=== PATIENT | female | born 1960 | race Caucasian/White ===

== ENCOUNTER 2019-08-05 07:45 | Outpatient (CLI) | payer OTHER, SELFPAY ==
--- NOTE | 2019-08-05 08:00 | MM_ITS ---
WS: [id number] BILATERAL DIGITAL DIAGNOSTIC MAMMOGRAM MAMMOGRAPHY WITH CAD CLINICAL INFORMATION: HX OF BREAST CANCER HISTORY: Left breast soreness COMPARISON: July 11, 2018 TECHNIQUE: Bilateral CC, MLO, and ML views. FINDINGS: Scattered fibroglandular densities bilaterally. Interval postoperative changes lumpectomy left breast for ductal carcinoma resection. Parenchymal fibrosis at the lumpectomy sites. Treatment-related mosquera ges left breast. Volume loss left breast. No suspicious focal mass, asymmetry, calcifications, or architectural distortion. No evidence of hari gnancy. MM/[id number] IMPRESSION: BI-RADS: 2-Benign FOLLOW UP: 1 Year Follow-up Recommend return to annual diagnostic mammography.
== END 2019-08-05 07:46 | disposition home or self-care (01) ==
LOC: ONCMED 07:51
PROVIDERS: Family Provider Physician Assistant; PCP Physician Assistant; Visit Provider Internal Medicine Medical Oncology
DX: Z85.3 Personal history of malignant neoplasm of breast (principal)
CPT/HCPCS: 77066

== ENCOUNTER 2019-08-13 13:56 | Outpatient (CLI) | payer OTHER, SELFPAY ==
[2019-08-13 14:42] LABS: Basophils % 0.6 %; Eosinophils # 0.1 10^3/uL (0.0-0.8); Eosinophils % 2.1 %; Hematocrit 42.7 % (37.0-47.0); Hemoglobin 14.2 g/dL (11.5-15.3); Lymphocytes # 1.6 10^3/uL (0.8-4.8); Lymphocytes % 29.7 %; Mean Corpuscular HGB Conc 33.3 g/dL (30.0-36.0); Mean Corpuscular Hemoglobin 31.8 pg (28.0-34.0); Mean Corpuscular Volume 95.7 fL (81-99); Mean Platelet Volume 10.7 fL (7.4-10.4); Monocytes # 0.4 10^3/uL (0.2-0.9); Monocytes % 8.4 %; Neutrophils # 3.1 10^3/uL (1.8-7.7); Nucleated Red Blood Cells % 0 %; Platelet Count 173 10^3/cmm (130-400); Red Blood Count 4.46 10^6/uL (4.1-5.3); Red Cell Distribution Width 12.1 % (12.1-15.1); White Blood Count 5.2 10^3/uL (4.0-10.0)
[2019-08-13 14:51] LABS: Alanine Aminotransferase 20 U/L (0-33); Albumin Level 4.3 g/dL (3.5-5.2); Alkaline Phosphatase 69 IU/L (35-105); Anion Gap 17.8 (5-19); Aspartate Amino Transferase 32 U/L (0-32); Blood Urea Nitrogen 12 mg/dL (6-20); Calcium 9.7 mg/dL (8.5-10.5); Carbon Dioxide 24 mmol/L (22-29); Chloride 101 mmol/L (98-107); Globulin 3.1 g/dL (1.3-4.6); Glomerular Filtration Rate 73.4 mL/min (90-130); Glucose 96 mg/dL (65-115); Osmolality Calculated 284 mOsm/kg (285-295); Potassium 3.8 mmol/L (3.5-5.1); Sodium 139 mmol/L (136-145); Total Bilirubin 0.4 mg/dL (0.15-1.2); Total Protein 7.4 g/dL (6.6-8.7)
== END 2019-08-13 13:57 | disposition home or self-care (01) ==
LOC: ONCMED 13:56
PROVIDERS: Family Provider Physician Assistant; PCP Physician Assistant; Visit Provider Internal Medicine Medical Oncology
DX: C50.812 Malignant neoplasm of overlapping sites of left female breast (principal)
CPT/HCPCS: 36415; 80053; 85025

== ENCOUNTER 2019-08-14 14:31 | Outpatient (CLI) | payer OTHER, SELFPAY ==
[2019-08-14] MEDS: denosumab 60 mg SDV SUBCUT (15:34)
--- NOTE | 2019-08-14 19:16 | ONC FU_ITS ---
Dr. Stewart Patient Follow-Up Note Patient: Andie Jerome Unit #: [id number]: [id number] Dicatated By: Keshav Stewart M.D.Date of Visit:Aug 14, 2019 Onc Med Follow-up/Prog Note Chief Complaint: Breast cancer. History of Present Illness: This is a 59 year-old woman with multifocal grade 2 infiltrating ductal carcinoma of the left breast, stage IA (T1c, N0, M0), ER/MO positive and HER-2/sean negative. This patient has been in good general health. She had recently become aware of a lump in her left breast. Diagnostic mammogram on 07/11/2018 showed a focal asymmetric density in the outer left breast measuring 1.6 x 1.1 cm and an additional smaller lesion in the posterior depth upper outer quadrant measuring 9.6 mm. Ultrasound showed a hypoechoic lobulated solid nodule with vascularity at the 3:00 position measuring 0.7 x 0.6 cm. An additional lesion at the 4:00 position deep to the areola measured 1.6 x 1.1 cm. It showed mixed echogenicity with lobulations and increased vascularity. Both lesions were BI-RADS 4C, moderately suspicious. She underwent directed needle biopsy of both lesions on 08/02/2018. Pathology on the lesion at 3:00 showed grade 2 infiltrating ductal carcinoma. The breast prognostic profile on that lesion showed ER positive at 96% and MO positive at 57%. It was negative for overexpression of HER-2/sean, 1+ by IHC with amplification ratio by FISH of 1.1 with 2.4 HER-2 copies/cell. The Ki-67 was unfavorable at 44%. Pathology on the lesion at 4:00 showed grade 2 infiltrating ductal carcinoma. That lesion was further evaluated by IHC for neuroendocrine differentiation, and that was found to be equivocal. She underwent left breast lumpectomy and axillary sentinel lymph node biopsy on 08/30/2018. Pathology on the lumpectomy showed 2 tumors, one measuring 1.2 x 1.2 cm and the other measuring 0.7 x 0.6 cm. Both showed grade 2 infiltrating ductal carcinoma. There was evidence for small lymphovascular space invasion. The resection margins were free. The sentinel lymph node biopsy showed no involvement in 2 lymph nodes. Given those findings, she then had further evaluation with Oncotype DX. It showed a recurrence score of 15, corresponding to a 4% risk of distant disease at 9 years with adjuvant hormonal therapy. The predicted benefit with adjuvant chemotherapy was < 1%. Given those findings, adjuvant chemotherapy was not recommended. She was then seen by Dr. Main, and she underwent radiation to the left breast. She completed treatment on 11/05/2018 to a total dose of 5256 cGy. I had seen her for a follow-up visit on 11/09/2018. She had just completed radiation. She did develop a significant skin reaction, but she otherwise tolerated it well. She then began adjuvant hormonal therapy with anastrozole 1 mg daily. Her baseline bone density showed osteopenia with T score -1.88 in the lumbar spine, -1.6 in the left proximal femur, and -1.5 in the right proximal femur. She began treatment with Prolia in February 2019. She is seen for a scheduled visit. She has been feeling good generally. 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 She is not having as much pain in her hands, though, and she is not having as much fatigue. Her ECOG score is 0. She has good appetite. She has not had fever or night sweats. She has just occasional hot flashes. She has no shortness of breath, cough, or chest pain. She has had a little pain at times in her left axillary area. She has no GI or complaints. She also has a little pain in her lower back and hips, mainly when she first gets up in the morning. She does not complain of headache. She has occasional episodes of vertigo. She occasionally has numbness in her hands. Medications: Aleve 1 Tablet (of 220 mg) Tablet Oral PRN, Anastrozole 1 Tablet (of 1 mg) Oral daily, Keon Mag Zinc +D3 2 Tablet Tablet Oral b.i.d., Cayenne Plus Garlic 1 (200-300 mg) Capsule Oral daily, francense 1 Capsule daily, Glucosamine 1 Tablet Oral daily, Grapeseed Extract 1 (500-50 mg) Capsule Oral daily, hylands allergy relief 1 Tablet Oral daily PRN, Multivitamin Adult 1 Tablet Oral daily, Ocuvite Adult 50+ 1 Tablet Capsule Oral daily, olive extract 1 Capsule daily, Radha Flazyme 1 Tablet daily, sinfix 1 Tablet Oral daily PRN, Turmeric 1 (400 mg) Capsule Oral daily, Vitamin B Complex 2 Tablet Tablet Oral b.i.d., Vitamin D3 Oral daily Allergies: No Known Allergies. Review of Systems: Constitutional - Her energy level is good. 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 Her appetite is good and weight is stable. No fever or chills. She has occasional hot flashes but they are improved. No night sweats. ECOG score is 0, ENMT - She has chronic sinus drainage. No mouth sores. No sore throat or difficulty swallowing, Hematologic/Lymphatic - She bruises easily, Respiratory - No shortness of breath. No cough. No pleuritic pain or hemoptysis, Cardiovascular - No angina pain. No palpitations, Gastrointestinal - No nausea or vomiting. No heartburn or acid reflux. No diarrhea or constipation. No blood in the stool or black stools, Genitourinary (F) - No dysuria or hematuria. No urinary frequency. No urgency or incontinence, Musculoskeletal - She has occasional pain in her left axilla area. She also has some occasional pain in her knees and in her lower back, Integumentary - No skin complications, Neurologic - No headache or dizziness. She continues to have some mild tingling in her fingers, Psychiatric - No anxiety or depression. No insomnia. Vital Signs: Performed on Aug 14, 2019 14:37 Height - 63.00 in Weight - 138.4 lbs (LOW) BSA - 1.65 sq.m BMI - 24.52 Temperature - 98.5 F Pulse - 80 /min Respiration - 20 /min BP - 138/75 mm(hg) O2 Sat - 97 % Pain - 0 Physical Examination: Constitutional - She looks good generally, Eyes - Sclerae nonicteric. Conjunctivae clear, ENMT - No lesions noted in the oral cavity, Hematologic/Lymphatic - No cervical or clavicular adenopathy, Respiratory - Lungs are clear with good air movement bilaterally, Cardiovascular - Heart rhythm is regular. There is no murmur, gallop, or rub noted, Breasts - There is mild induration in the left breast. There are no breast masses noted. There is no axillary adenopathy noted, Abdomen - Soft. Liver and spleen are not enlarged. There is no abdominal mass or ascites noted and there is no inguinal adenopathy, Extremities - No edema. Dorsalis pedis pulses are palpable bilaterally, Neurologic - No focal neurologic deficits noted. Lab/Imaging: CBC shows hemoglobin 14.2 g, white blood cell count 5200, and platelet count 173,000. Comprehensive metabolic profile is unremarkable. Impression: 1. Patient with multifocal grade 2 infiltrating ductal carcinoma of the left breast, stage IA (T1c, N0, M0), ER/MO positive and HER-2/sean negative. Her Oncoptype DX score was 15, low risk, with risk of distant disease at 9 years estimated at 4% with adjuvant hormonal therapy. The predicted benefit with adjuvant chemotherapy was < 1%. As such, chemotherapy was not recommended. 2. She underwent needle biopsy of 2 left breast lesions on 08/02/2018 followed by lumpectomy and axillary sentinel lymph node biopsy on 08/30/2018. 3. She completed radiation to the left breast on 11/05/2018 to a total dose of 5256 cGy. In November 2018 she began adjuvant hormonal therapy with anastrozole 1 mg daily. Her baseline bone density did show evidence of osteopenia with T score -1.8 in the lumbar spine, -1.6 in the left proximal femur, and -1.5 in the right proximal femur. She began treatment with Prolia in February 2019. Thus far she has been able to tolerate the anastrozole with acceptable side effects, mainly fatigue and mild joint pain. Overall, she is doing well clinically with no evidence of recurrence of the breast cancer. Plan: She will continue adjuvant hormonal therapy with anastrozole 1 mg daily. She will be given Prolia 60 mg by subcutaneous injection for bone health. She will be scheduled for a follow-up visit in 6 months. Signed By: Keshav Stewart M.D. <<Signature on File>>
== END 2019-08-14 14:32 | disposition home or self-care (01) ==
LOC: ONCMED 14:31
PROVIDERS: Family Provider Physician Assistant; PCP Physician Assistant; Visit Provider Internal Medicine Medical Oncology
DX: C50.812 Malignant neoplasm of overlapping sites of left female breast (principal); M85.89 Other specified disorders of bone density and structure, multiple sites; Z17.0 Estrogen receptor positive status [ER+]; Z79.811 Long term (current) use of aromatase inhibitors; Z92.3 Personal history of irradiation
CPT/HCPCS: 96372; 99214; J0897

== ENCOUNTER 2020-02-12 13:43 | Outpatient (CLI) | payer OTHER, SELFPAY ==
[2020-02-12 14:17] LABS: Basophils % 0.8 %; Eosinophils # 0.2 10^3/uL (0.0-0.8); Hematocrit 42.2 % (37.0-47.0); Hemoglobin 14.3 g/dL (11.5-15.3); Lymphocytes # 1.9 10^3/uL (0.8-4.8); Lymphocytes % 35.2 %; Mean Corpuscular HGB Conc 33.9 g/dL (30.0-36.0); Mean Corpuscular Hemoglobin 32.3 pg (28.0-34.0); Mean Corpuscular Volume 95.3 fL (81-99); Mean Platelet Volume 11.2 fL (7.4-10.4); Monocytes # 0.5 10^3/uL (0.2-0.9); Monocytes % 9.1 %; Neutrophils # 2.68 10^3/uL (1.8-7.7); Neutrophils % 50.9 %; Nucleated Red Blood Cells % 0 %; Platelet Count 174 10^3/cmm (130-400); Red Blood Count 4.43 10^6/uL (4.1-5.3); White Blood Count 5.3 10^3/uL (4.0-10.0)
[2020-02-12 14:38] LABS: Alanine Aminotransferase 21 U/L (0-33); Albumin Level 4.2 g/dL (3.5-5.2); Alkaline Phosphatase 77 IU/L (35-105); Anion Gap 15.8 (5-19); Aspartate Amino Transferase 29 U/L (0-32); Blood Urea Nitrogen 15 mg/dL (6-20); Calcium 9.8 mg/dL (8.5-10.5); Carbon Dioxide 27 mmol/L (22-29); Chloride 102 mmol/L (98-107); Globulin 2.6 g/dL (1.3-4.6); Glomerular Filtration Rate 73.4 mL/min (90-130); Glucose 101 mg/dL (65-115); Osmolality Calculated 293 mOsm/kg (285-295); Potassium 3.8 mmol/L (3.5-5.1); Sodium 141 mmol/L (136-145); Total Bilirubin 0.4 mg/dL (0.15-1.2); Total Protein 6.8 g/dL (6.6-8.7)
== END 2020-02-12 13:44 | disposition home or self-care (01) ==
LOC: ONCMED 13:45
PROVIDERS: PCP Physician Assistant; Visit Provider Internal Medicine Medical Oncology
DX: C50.812 Malignant neoplasm of overlapping sites of left female breast (principal); Z17.0 Estrogen receptor positive status [ER+]
CPT/HCPCS: 36415; 80053; 85025

== ENCOUNTER 2020-02-13 07:47 | Outpatient (CLI) | payer OTHER, SELFPAY ==
[2020-02-13] MEDS: denosumab 60 mg SDV SUBCUT (16:15)
--- NOTE | 2020-02-20 15:04 | ONC FU_ITS ---
[facility] Patient Note Patient: Andie Jerome Unit #: [id number]: [id number] Dictated By: Mariela GallardoDate of Visit: Feb 13, 2020 Onc MED Follow-Up/Prog Note Chief Complaint: Breast cancer. History of Present Illness: Ms Jerome is a 59 year-old woman with multifocal grade 2 infiltrating ductal carcinoma of the left breast, stage IA (T1c, N0, M0), ER/SD positive and HER-2/sean negative. Overall, she has been in good general health. She became aware of a lump in her left breast. Diagnostic mammogram on 07/11/2018 showed a focal asymmetric density in the outer left breast measuring 1.6 x 1.1 cm and an additional smaller lesion in the posterior depth upper outer quadrant measuring 9.6 mm. Ultrasound showed a hypoechoic lobulated solid nodule with vascularity at the 3:00 position measuring 0.7 x 0.6 cm. An additional lesion at the 4:00 position deep to the areola measured 1.6 x 1.1 cm. It showed mixed echogenicity with lobulations and increased vascularity. Both lesions were BI-RADS 4C, moderately suspicious. She underwent directed needle biopsy of both lesions on 08/02/2018. Pathology on the lesion at 3:00 showed grade 2 infiltrating ductal carcinoma. The breast prognostic profile on that lesion showed ER positive at 96% and SD positive at 57%. It was negative for overexpression of HER-2/sean, 1+ by IHC with amplification ratio by FISH of 1.1 with 2.4 HER-2 copies/cell. The Ki-67 was unfavorable at 44%. Pathology on the lesion at 4:00 showed grade 2 infiltrating ductal carcinoma. That lesion was further evaluated by IHC for neuroendocrine differentiation, and that was found to be equivocal. She underwent left breast lumpectomy and axillary sentinel lymph node biopsy on 08/30/2018. Pathology on the lumpectomy showed 2 tumors, one measuring 1.2 x 1.2 cm and the other measuring 0.7 x 0.6 cm. Both showed grade 2 infiltrating ductal carcinoma. There was evidence for small lymphovascular space invasion. The resection margins were free. The sentinel lymph node biopsy showed no involvement in 2 lymph nodes. Given those findings, she then had further evaluation with Oncotype DX. It showed a recurrence score of 15, corresponding to a 4% risk of distant disease at 9 years with adjuvant hormonal therapy. The predicted benefit with adjuvant chemotherapy was < 1%. Given those findings, adjuvant chemotherapy was not recommended. She was then seen by Dr. Main, and she underwent radiation to the left breast. She completed treatment on 11/05/2018 to a total dose of [address] Stewart had seen her for a follow-up visit on 11/09/2018. She had just completed radiation. She did develop a significant skin reaction, but she otherwise tolerated it well. She then began adjuvant hormonal therapy with anastrozole 1 mg daily. Her baseline bone density showed osteopenia with T score -1.88 in the lumbar spine, -1.6 in the left proximal femur, and -1.5 in the right proximal femur. She began treatment with Prolia in February 2019. Ms. Jerome is here today for follow-up. She continues to do well overall. She is doing well with the anastrozole 1 mg daily. She states she has had some joint stiffness in her hands of the morning. She states longer she is up and more she works them the better they seem to get. She has not tried any topical agents such as Voltaren/diclofenac gel. She is advised she can try that if she would like it just topical cream to apply to her hands up to 4 times daily as needed for pain. She states that she thinks her back pain is some better but is still present. She has had some joint stiffness in the back as well as the hands most likely related to the aromatase inhibitor. She denies any fever or chills. She is had no signs or symptoms of infection. She has had no known Covid symptoms, exposure or personal testing herself. She denies any new shortness of breath. She denies orthopnea. She is had no sudden shortness of breath or wheezing. She denies chest pain, palpitations. She denies any lower extremity edema. She states her bowels and bladder are normal for her. Her ECOG is 0. Past Medical History: She has had no ongoing medical illnesses. Past Surgical History: Bilateral salpingectomy Lumpectomy Allergies: No Known Allergies. Medications: Aleve 1 Tablet (of 220 mg) Tablet Oral PRN Anastrozole 1 Tablet (of 1 mg) Oral daily Calcium-Magnesium 1 Tablet Oral b.i.d. Cayenne Plus Garlic 1 (200-300 mg) Capsule Oral daily francense 1 Capsule daily Glucosamine 1 Tablet Oral daily Grapeseed Extract 1 (500-50 mg) Capsule Oral daily hylands allergy relief 1 Tablet Oral daily PRN Multivitamin Adult 0.5 Tablet Oral b.i.d. olive extract 1 Capsule daily PRN Radha Flazyme 1 Tablet daily Vitamin B Complex 1 Tablet Oral b.i.d. Family History: Ms. Jerome's mother at age 61: uterine cancer. Ms. Jerome's father at age 65: myocardial infarction. Father of heart attack age 65. Mother of uterine cancer at age 61. One sister is in good health. 2 maternal uncles had lung cancer, another maternal uncle had leukemia, and a maternal aunt had cervical cancer. 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 Ms. Jerome quit smoking 31 years ago but had smoked 0.5 packs/day for 7 years. She drinks occasionally. She has a history of smoking 1/2 pack of cigarettes daily for 7 years. She quit smoking 30 years ago. She has had just very occasional alcohol use. Review Of Symptoms: Constitutional Denies fevers, chills, night sweats, excessive fatigue or weight loss. Allergic/Immunologic No reactions. Eyes Denies significant visual changes. No diplopia. No amaurosis. ENMT Denies changes in hearing, sore throat, mouth sores, difficulty or changes in swallowing ability, and/or sinus drainage. Hematologic/Lymphatic Denies easy bruising or bleeding. The patient denies any tender or palpable lymph nodes. Breasts No concerns Respiratory Denies dyspnea on exertion, chest pain, cough or hemoptysis. Denies orthopnea. Cardiovascular Denies anginal chest pain, palpitations or orthopnea. Gastrointestinal Denies nausea, vomiting, diarrhea, GI bleeding, or constipation. Denies change in bowel habits and/or stool color, no heartburn or early satiety. Genitourinary (F) No hematuria, hesitancy, incontinence, vaginal bleeding, discharge or other problems with urination. Musculoskeletal Denies joint pain, swelling or redness. No decreased range of motion. Chronic back and hand (bilateral) pain and stiffness-not new and no worse than her normal. She states the back pain seems some better in general. Integumentary Denies chronic rashes, inflammation, ulcerations or skin changes. Neurologic Denies headache, blurred vision, and no areas of focal weakness or numbness. Normal gait. No sensory problems. Psychiatric Denies insomnia, depression, guadalupe or mood swings. Vital Signs: Performed on Feb 13, 2020 14:38 Height - 63.00 in Weight - 144.6 lbs (HIGH) BSA - 1.68 sq.m BMI - 25.61 Temperature - 98.4 F Pulse - 85 /min Respiration - 20 /min BP - 132/74 mm(hg) O2 Sat - 99 % Pain - 2,0 - Fully active, able to carry on all predisease activities without restrictions. (ECOG) Physical Examination: Constitutional Alert, oriented, no acute distress. Skin pink, warm and dry. Head Normocephalic; atraumatic. Eyes Conjunctivae and sclerae are clear and without icterus. Pupils are reactive and equal. Neck Supple without masses or thyromegaly. No jugular venous distension. Hematologic/Lymphatic No petechiae or purpura. No tender or palpable lymph nodes in the cervical or supraclavicular areas. Respiratory Lungs are clear to auscultation without rhonchi or wheezing. Cardiovascular Regular rate and rhythm of heart without murmurs,clicks, gallops or rubs. Abdomen Non-tender, non-distended, no masses or ascites. Back/Spine Non-tender to palpation. Extremities No visible deformities, no cyanosis, clubbing or edema. Musculoskeletal No tenderness or swelling, normal range of motion without obvious weakness. Integumentary No rashes or lesions. Neurologic No sensory or motor deficits, normal cerebellar function, normal gait. Psychiatric Alert and oriented times three. Coherent speech. Verbalizes understanding of our discussions today. Laboratory: Impression: 1. Patient with multifocal grade 2 infiltrating ductal carcinoma of the left breast, stage IA (T1c, N0, M0), ER/SD positive and HER-2/sean negative. Her Oncoptype DX score was 15, low risk, with risk of distant disease at 9 years estimated at 4% with adjuvant hormonal therapy. The predicted benefit with adjuvant chemotherapy was < 1%. As such, chemotherapy was not recommended. 2. She underwent needle biopsy of 2 left breast lesions on 08/02/2018 followed by lumpectomy and axillary sentinel lymph node biopsy on 08/30/2018. 3. She completed radiation to the left breast on 11/05/2018 to a total dose of 5256 cGy. In November 2018 she began adjuvant hormonal therapy with anastrozole 1 mg daily. Her baseline bone density did show evidence of osteopenia with T score -1.8 in the lumbar spine, -1.6 in the left proximal femur, and -1.5 in the right proximal femur. She began treatment with Prolia in February 2019. Thus far she has been able to tolerate the anastrozole with acceptable side effects, mainly fatigue and mild joint pain. Overall, she is doing well clinically with no evidence of recurrence of the breast cancer. Plan: 1. Continue adjuvant hormonal therapy with anastrozole 1 mg daily. 2. Continue Prolia/denosumab 60 mg every 6-month for osteopenia with a T score of -1.8 on November 2018. She has high risk for osteoporosis also due to the aromatase inhibitor therapy. 3. Labs from February 12, 2020 were reviewed in detail and discussed with Ms. Jerome and a copy was given to her. WBC 5.3, hemoglobin 14.3, platelets 124,000 ANC is 2700. Potassium 3.8 glucose 101 creatinine 0.8 LFTs are normal. 4. She is advised she can try diclofenac/Voltaren gel to her hands for presumed arthritic discomfort up to 4 times daily. If she continues to have significant pain we could offer her x-rays but she did not want to pursue that right now. 5. We will plan to see her back with CBC CMP in 6 months which time she will be due for denosumab/Prolia at that time. 6. Her bone density was November 2018 which showed osteopenia with a T score of -1.8 in the lumbar spine. 7. Ms. Jerome was encouraged to contact us in the interim should questions or problems arise. 8. She did have bilateral digital mammogram with CAD from [facility] on August 05, 2019. Reported BI-RADS: 2???benign follow-up in 1 year. Signed By: Mariela Gallardo-, AOCN Keshav Stewart MD <<Signature on File>>
== END 2020-02-13 07:48 | disposition home or self-care (01) ==
LOC: ONCMED 07:47
PROVIDERS: PCP Physician Assistant; Visit Provider Nurse Practitioner
DX: C50.812 Malignant neoplasm of overlapping sites of left female breast (principal); M85.88 Other specified disorders of bone density and structure, other site; Z17.0 Estrogen receptor positive status [ER+]; Z87.891 Personal history of nicotine dependence; Z92.3 Personal history of irradiation; Z79.811 Long term (current) use of aromatase inhibitors
CPT/HCPCS: 96372; 99214; J0897

== ENCOUNTER 2020-08-11 09:15 | Outpatient (CLI) | payer OTHER, SELFPAY ==
--- NOTE | 2020-08-11 09:17 | MM_ITS ---
WS: [id number] DIAGNOSTIC BILATERAL DIGITAL MAMMOGRAM WITH CAD HISTORY: HX OF BREAST CA COMPARISON: 08/05/2019 and 07/11/2018 TECHNIQUE: Bilateral craniocaudad, mediolateral oblique, and mediolateral views are submitted. Comput er aided detection utilized. Breast composition: There are scattered areas of fibroglandular density. Volume loss and postsurgical changes in the upper-outer quadrant of the LEFT breast are stable. No recurrent mass or calcificatio n identified. Mild increase in the trabecular pattern from prior radiation most likely. MM/[id number] IMPRESSION: BI-RADS: 2-Benign FOLLOW UP: 1 Year Follow-up
== END 2020-08-11 09:16 | disposition home or self-care (01) ==
LOC: RADSHAW 09:16
PROVIDERS: PCP Physician Assistant; Visit Provider Internal Medicine Medical Oncology
DX: Z85.3 Personal history of malignant neoplasm of breast (principal)
CPT/HCPCS: 77066

== ENCOUNTER 2020-08-14 06:05 | Outpatient (CLI) | payer OTHER, SELFPAY ==
[2020-08-14 08:39] LABS: Basophils % 0.8 %; Eosinophils # 0.3 10^3/uL (0.0-0.8); Eosinophils % 5.9 %; Hematocrit 43.1 % (37.0-47.0); Hemoglobin 14.5 g/dL (11.5-15.3); Lymphocytes # 1.5 10^3/uL (0.8-4.8); Lymphocytes % 32.1 %; Mean Corpuscular HGB Conc 33.6 g/dL (30.0-36.0); Mean Corpuscular Hemoglobin 32.9 pg (28.0-34.0); Mean Corpuscular Volume 97.7 fL (81-99); Monocytes # 0.4 10^3/uL (0.2-0.9); Monocytes % 9.3 %; Neutrophils # 2.44 10^3/uL (1.8-7.7); Neutrophils % 51.7 %; Nucleated Red Blood Cells % 0 %; Platelet Count 166 10^3/cmm (130-400); Red Blood Count 4.41 10^6/uL (4.1-5.3); Red Cell Distribution Width 12.1 % (12.1-15.1); White Blood Count 4.7 10^3/uL (4.0-10.0)
[2020-08-14 08:57] LABS: Alanine Aminotransferase 18 U/L (0-33); Albumin Level 4.1 g/dL (3.5-5.2); Alkaline Phosphatase 67 IU/L (35-105); Aspartate Amino Transferase 29 U/L (0-32); Blood Urea Nitrogen 15 mg/dL (8-23); Calcium 9.2 mg/dL (8.5-10.5); Carbon Dioxide 29 mmol/L (22-29); Chloride 107 mmol/L (98-107); Globulin 2.4 g/dL (1.3-4.6); Glomerular Filtration Rate 85.4 mL/min (90-130); Glucose 88 mg/dL (65-115); Osmolality Calculated 294 mOsm/kg (285-295); Sodium 142 mmol/L (136-145); Total Bilirubin 0.5 mg/dL (0.15-1.2); Total Protein 6.5 g/dL (6.6-8.7)
== END 2020-08-14 06:06 | disposition home or self-care (01) ==
LOC: ONCMED 06:07
PROVIDERS: PCP Physician Assistant; Visit Provider Internal Medicine Medical Oncology
DX: C50.812 Malignant neoplasm of overlapping sites of left female breast (principal); Z17.0 Estrogen receptor positive status [ER+]
CPT/HCPCS: 80053; 85025

== ENCOUNTER 2020-08-17 05:45 | Outpatient (CLI) | payer OTHER, SELFPAY ==
[2020-08-17] MEDS: denosumab 60 mg SDV SUBCUT (13:35)
--- NOTE | 2020-08-18 19:58 | ONC FU_ITS ---
Dr. Stewart Patient Follow-Up Note Patient: Andie Jerome Unit #: [id number]: 1960 Dicatated By: Keshav Stewart M.D.Date of Visit:Aug 17, 2020 Onc Med Follow-up/Prog Note Chief Complaint: Breast cancer. History of Present Illness: This is a 60 year-old woman with multifocal grade 2 infiltrating ductal carcinoma of the left breast, stage IA (T1c, N0, M0), ER/WA positive and HER-2/sean negative. She presented with a lump in her left breast. Diagnostic mammogram on 07/11/2018 showed a focal asymmetric density in the outer left breast measuring 1.6 x 1.1 cm and an additional smaller lesion in the posterior depth upper outer quadrant measuring 9.6 mm. Ultrasound showed a hypoechoic lobulated solid nodule with vascularity at the 3:00 position measuring 0.7 x 0.6 cm. An additional lesion at the 4:00 position deep to the areola measured 1.6 x 1.1 cm. It showed mixed echogenicity with lobulations and increased vascularity. Both lesions were BI-RADS 4C, moderately suspicious. She underwent directed needle biopsy of both lesions on 08/02/2018. Pathology on the lesion at 3:00 showed grade 2 infiltrating ductal carcinoma. The breast prognostic profile on that lesion showed ER positive at 96% and WA positive at 57%. It was negative for overexpression of HER-2/sean, 1+ by IHC with amplification ratio by FISH of 1.1 with 2.4 HER-2 copies/cell. The Ki-67 was unfavorable at 44%. Pathology on the lesion at 4:00 showed grade 2 infiltrating ductal carcinoma. That lesion was further evaluated by IHC for neuroendocrine differentiation, and that was found to be equivocal. She underwent left breast lumpectomy and axillary sentinel lymph node biopsy on 08/30/2018. Pathology on the lumpectomy showed 2 tumors, one measuring 1.2 x 1.2 cm and the other measuring 0.7 x 0.6 cm. Both showed grade 2 infiltrating ductal carcinoma. There was evidence for small lymphovascular space invasion. The resection margins were free. The sentinel lymph node biopsy showed no involvement in 2 lymph nodes. Given those findings, she then had further evaluation with Oncotype DX. It showed a recurrence score of 15, corresponding to a 4% risk of distant disease at 9 years with adjuvant hormonal therapy. The predicted benefit with adjuvant chemotherapy was < 1%. Given those findings, adjuvant chemotherapy was not recommended. She was then seen by Dr. Main, and she underwent radiation to the left breast. She completed treatment on 11/05/2018 to a total dose of 5256 cGy. I had seen her for a follow-up visit on 11/09/2018. She had just completed radiation. She then began adjuvant hormonal therapy with anastrozole 1 mg daily. Her baseline bone density showed osteopenia with T score -1.88 in the lumbar spine, -1.6 in the left proximal femur, and -1.5 in the right proximal femur. She began treatment with Prolia in February 2019. She has been in good general health. She has had no other ongoing medical illnesses. She has a history of smoking 1/2 pack of cigarettes daily for 7 years. She quit smoking around 1989. She is seen for a scheduled visit. She has been feeling pretty good generally. Since she has been taking the anastrozole she has noticed some fatigue, but she still has normal activity. ECOG score is 0. She also has had some pain in the lower back and hips, but thus far it has been tolerable. The pain does tend to bother her when she first gets up in the morning, and it improves with stretching and activity. She has good appetite. She has not had fever. She has just rare hot flashes. She has no shortness of breath, cough, or chest pain. She has no GI or complaints. She has had some allergy related sinus symptoms and some associated sinus headache. She sometimes has a little tingling in her hands. She has no other focal neurologic symptoms. Medications: Aleve 1 Tablet (of 220 mg) Tablet Oral PRN, Anastrozole 1 Tablet (of 1 mg) Oral daily, Calcium-Magnesium 1 Tablet Oral b.i.d., Cayenne Plus Garlic 1 (200-300 mg) Capsule Oral daily, francense 1 Capsule daily, Glucosamine 1 Tablet Oral daily, Grapeseed Extract 1 (500-50 mg) Capsule Oral daily, hylands allergy relief 1 Tablet Oral daily PRN, Multivitamin Adult 0.5 Tablet Oral b.i.d., olive extract 1 Capsule daily PRN, Radha Flazyme 1 Tablet daily, Vitamin B Complex 1 Tablet Oral b.i.d. Allergies: No Known Allergies. Vital Signs: Performed on Aug 17, 2020 13:00 Height - 63.00 in Weight - 142.2 lbs (LOW) BSA - 1.67 sq.m BMI - 25.19 Temperature - 98.8 F Pulse - 80 /min Respiration - 18 /min BP - 166/75 mm(hg) (HIGH) O2 Sat - 97 % Pain - 3 Fatigue - 1 Physical Examination: Constitutional - She looks good generally, Eyes - Sclerae nonicteric. Conjunctivae clear, ENMT - No lesions noted in the oral cavity, Hematologic/Lymphatic - No cervical or clavicular adenopathy, Respiratory - Lungs are clear with good air movement bilaterally, Cardiovascular - Heart rhythm is regular. There is no murmur, gallop, or rub noted, Breasts - There is mild induration in the left breast. There are no breast masses noted. There is no axillary adenopathy noted, Abdomen - Soft. Liver and spleen are not enlarged. There is no abdominal mass or ascites noted and there is no inguinal adenopathy, Extremities - No edema, Neurologic - No focal neurologic deficits noted. Lab/Imaging: CBC shows hemoglobin 14.5 g, white blood cell count 4700, and platelet count 166,000. Comprehensive metabolic profile shows normal renal function with BUN 15 and creatinine 0.7 mg/dL. Bilirubin and liver enzymes are normal. Problem List: 1. Multifocal grade 2 infiltrating ductal carcinoma of the left breast, stage IA (T1c, N0, M0), ER/WA positive and HER-2/sean negative. Her Oncoptype DX score was 15, low risk. 2. Her baseline bone density did show evidence of osteopenia with T score -1.8 in the lumbar spine, -1.6 in the left proximal femur, and -1.5 in the right proximal femur. She began treatment with Prolia in February 2019. Problems Addressed with this Encounter and Plan: 1. Patient with multifocal grade 2 infiltrating ductal carcinoma of the left breast, stage IA (T1c, N0, M0), ER/WA positive and HER-2/sean negative. She underwent needle biopsy of 2 left breast lesions on 08/02/2018 followed by lumpectomy and axillary sentinel lymph node biopsy on 08/30/2018. Her Oncoptype DX score was 15, low risk, with risk of distant disease at 9 years estimated at 4% with adjuvant endocrine therapy. The predicted benefit with adjuvant chemotherapy was < 1%. As such, chemotherapy was not recommended. She underwent radiation to the left breast, completed on 11/05/2018 to a total dose of 5256 cGy. In November 2018 she began adjuvant hormonal therapy with anastrozole 1 mg daily. During follow-up she has had mild fatigue and she has developed some musculoskeletal pain. Thus far those side effects have remained tolerable. She has otherwise been doing well clinically. There has been no evidence of recurrence of the breast cancer. She will continue adjuvant hormonal therapy with anastrozole 1 mg daily. She will be scheduled for a follow-up visit in 6 months. 2. Her baseline bone density did show evidence of osteopenia with T score -1.8 in the lumbar spine, -1.6 in the left proximal femur, and -1.5 in the right proximal femur. She began treatment with Prolia in February 2019. She has tolerated it with no apparent adverse effects. She will be given Prolia 60 mg by subcutaneous injection for maintenance of bone health. Signed By: Keshav Stewart M.D. <<Signature on File>>
== END 2020-08-17 05:46 | disposition home or self-care (01) ==
PROVIDERS: PCP Physician Assistant; Visit Provider Internal Medicine Medical Oncology
DX: C50.812 Malignant neoplasm of overlapping sites of left female breast (principal); M85.88 Other specified disorders of bone density and structure, other site; Z17.0 Estrogen receptor positive status [ER+]; Z79.811 Long term (current) use of aromatase inhibitors; Z87.891 Personal history of nicotine dependence
CPT/HCPCS: 96372; 99214; J0897

== ENCOUNTER 2020-11-27 10:42 | Outpatient (CLI) | payer OTHER, SELFPAY ==
--- NOTE | 2020-11-27 10:56 | XR_ITS ---
WS: [id number] Bone mineral density performed on a [employer] IDXA, 11/27/2020. Clinical data: OSTEOPOROSIS Comparison study: DEXA scan, 11/26/2018. Findings: The first 4 lumbar vertebral bodies demonstrated the bone mineral density of 1.047 g/cm2 for a young adult T score of -1.1. Measurement of the left hip reveals a bone mineral density of 0.852 g/cm2 with a young adult T score of -1.2. Measurement of the right hip reveals the bone mineral density of 0.874 g/cm2 for young adult T score of -1.1. XR/XR DEXA axial skeleton* [id number] Impression: 1. The bone mineral density lumbar spine has increased slightly compared to the prior study, osteopenia. 2. The bone mineral density of the left hip is increased slightly from the prio r study, osteopenia. 3. The bone mineral density of the right hip has increased slightly compared to the prior study, osteopenia.
== END 2020-11-27 10:43 | disposition home or self-care (01) ==
LOC: RADWPI 10:44
PROVIDERS: PCP Physician Assistant; Visit Provider Internal Medicine Medical Oncology
DX: M81.0 Age-related osteoporosis without current pathological fracture (principal); M85.89 Other specified disorders of bone density and structure, multiple sites
CPT/HCPCS: 77080

== ENCOUNTER 2021-02-25 07:57 | Outpatient (CLI) | payer OTHER, SELFPAY ==
[2021-02-25 09:10] LABS: Basophils % 0.9 %; Eosinophils # 0.2 10^3/uL (0.0-0.8); Eosinophils % 4.7 %; Hematocrit 44.4 % (37.0-47.0); Hemoglobin 15.1 g/dL (11.5-15.3); Lymphocytes # 1.6 10^3/uL (0.8-4.8); Lymphocytes % 37.4 %; Mean Corpuscular Volume 96.9 fl (81-99); Mean Platelet Volume 12.3 fL (7.4-10.4); Monocytes # 0.4 10^3/uL (0.2-0.9); Monocytes % 9.1 %; Neutrophils # 2.05 10^3/uL (1.8-7.7); Neutrophils % 47.9 %; Nucleated Red Blood Cells % 0 %; Platelet Count 139 10^3/cmm (130-400); Red Blood Count 4.58 10^6/uL (4.1-5.3); Red Cell Distribution Width 12.3 % (12.1-15.1); White Blood Count 4.3 10^3/uL (4.0-10.0)
[2021-02-25 10:03] LABS: 25 Hydroxy Vitamin D 57 ng/mL (30-100); Alanine Aminotransferase 21 U/L (0-33); Albumin Level 4.3 g/dL (3.5-5.2); Alkaline Phosphatase 65 IU/L (35-105); Anion Gap 11.8 (5-19); Aspartate Amino Transferase 30 U/L (0-32); Blood Urea Nitrogen 11 mg/dL (8-23); Calcium 9.3 mg/dL (8.5-10.5); Carbon Dioxide 29 mmol/L (22-29); Chloride 105 mmol/L (98-107); Chol HDL Ratio 3.26 mg/dL (0.0-4.40); Cholesterol 251 mg/dL (0-200); Globulin 2.6 g/dL (1.3-4.6); Glucose 88 mg/dL (65-115); HDL Cholesterol 77 mg/dL (60-100); LDL Cholesterol Calculated 158 mg/dL (50-129); LDL HDL Ratio 2.05 RATIO (0.00-3.22); Osmolality Calculated 293 mOsm/kg (285-295); Potassium 3.8 mmol/L (3.5-5.1); Sodium 142 mmol/L (136-145); Total Bilirubin 0.6 mg/dL (0.15-1.2); Total Protein 6.9 g/dL (6.6-8.7); Triglycerides 82 mg/dL (0-150)
[2021-02-25] MEDS: denosumab 60 mg SDV SUBCUT (13:01)
[2021-02-25 13:03] VITALS: BP 146/80; PULSE 79; RESP 18; TEMP 36.8; O2SAT 100
--- NOTE | 2021-02-25 18:45 | ONC FU_ITS ---
Dr. Stewart Patient Follow-Up Note Patient: Andie Jerome Unit #: [id number]: 1960 Dicatated By: Keshav Stewart M.D.Date of Visit:Feb 25, 2021 Onc Med Follow-up/Prog Note Chief Complaint: Breast cancer. History of Present Illness: This is a 60 year-old woman with multifocal grade 2 infiltrating ductal carcinoma of the left breast, stage IA (T1c, N0, M0), ER/OH positive and HER-2/sean negative. She presented with a lump in her left breast. Diagnostic mammogram on 07/11/2018 showed a focal asymmetric density in the outer left breast measuring 1.6 x 1.1 cm and an additional smaller lesion in the posterior depth upper outer quadrant measuring 9.6 mm. Ultrasound showed a hypoechoic lobulated solid nodule with vascularity at the 3:00 position measuring 0.7 x 0.6 cm. An additional lesion at the 4:00 position deep to the areola measured 1.6 x 1.1 cm. It showed mixed echogenicity with lobulations and increased vascularity. Both lesions were BI-RADS 4C, moderately suspicious. She underwent directed needle biopsy of both lesions on 08/02/2018. Pathology on the lesion at 3:00 showed grade 2 infiltrating ductal carcinoma. The breast prognostic profile on that lesion showed ER positive at 96% and OH positive at 57%. It was negative for overexpression of HER-2/sean, 1+ by IHC with amplification ratio by FISH of 1.1 with 2.4 HER-2 copies/cell. The Ki-67 was unfavorable at 44%. Pathology on the lesion at 4:00 showed grade 2 infiltrating ductal carcinoma. That lesion was further evaluated by IHC for neuroendocrine differentiation, and that was found to be equivocal. She underwent left breast lumpectomy and axillary sentinel lymph node biopsy on 08/30/2018. Pathology on the lumpectomy showed 2 tumors, one measuring 1.2 x 1.2 cm and the other measuring 0.7 x 0.6 cm. Both showed grade 2 infiltrating ductal carcinoma. There was evidence for small lymphovascular space invasion. The resection margins were free. The sentinel lymph node biopsy showed no involvement in 2 lymph nodes. Given those findings, she then had further evaluation with Oncotype DX. It showed a recurrence score of 15, corresponding to a 4% risk of distant disease at 9 years with adjuvant hormonal therapy. The predicted benefit with adjuvant chemotherapy was < 1%. Given those findings, adjuvant chemotherapy was not recommended. She was then seen by Dr. Main, and she underwent radiation to the left breast. She completed treatment on 11/05/2018 to a total dose of 5256 cGy. I had seen her for a follow-up visit on 11/09/2018. She had just completed radiation. She then began adjuvant hormonal therapy with anastrozole 1 mg daily. Her baseline bone density showed osteopenia with T score -1.88 in the lumbar spine, -1.6 in the left proximal femur, and -1.5 in the right proximal femur. She began treatment with Prolia in February 2019. She has been in good general health. She has had no other ongoing medical illnesses. She has a history of smoking 1/2 pack of cigarettes daily for 7 years. She quit smoking around 1989. She is seen for a scheduled visit. She has been feeling pretty good generally. She does have a lot of fatigue with the anastrozole, she still has normal activity. Her ECOG score is 0. She has good appetite. She has not had fever or night sweats. She has just occasional hot flashes. She still has some soreness in her breast. She does not have shortness of breath or cough and she otherwise has not been having chest pain. She has no GI or complaints. She has some pain in her lower back and hips, but it is not getting worse. She does not complain of headache. She occasionally has vertigo. She occasionally has numbness in her hands. Medications: Aleve 1 Tablet (of 220 mg) Tablet Oral PRN, Anastrozole 1 Tablet (of 1 mg) Oral daily, Calcium-Magnesium 1 Tablet Oral b.i.d., Cayenne Plus Garlic 1 (200-300 mg) Capsule Oral daily, francense 1 Capsule daily, Glucosamine 1 Tablet Oral daily, Grapeseed Extract 1 (500-50 mg) Capsule Oral daily, hylands allergy relief 1 Tablet Oral daily PRN, Multivitamin Adult 0.5 Tablet Oral b.i.d., olive extract 1 Capsule daily PRN, Radha Flazyme 1 Tablet daily, Vitamin B Complex 1 Tablet Oral b.i.d. Allergies: Flucelvax Quadrivalent Vital Signs: Performed on Feb 25, 2021 13:03 Height - 63.00 in Temperature - 98.3 F (LOW) Pulse - 79 /min Respiration - 18 /min BP - 146/80 mm(hg) (HIGH) O2 Sat - 100 % Performed on Feb 25, 2021 12:29 Height - 63.00 in Weight - 148.2 lbs (HIGH) BSA - 1.70 sq.m BMI - 26.25 Temperature - 97.6 F (LOW) Pulse - 80 /min Respiration - 18 /min BP - 159/80 mm(hg) (HIGH) O2 Sat - 99 % Pain - 0 Fatigue - 5 Physical Examination: Constitutional - She looks good generally, Eyes - Sclerae nonicteric. Conjunctivae clear, ENMT - No lesions noted in the oral cavity, Hematologic/Lymphatic - No cervical or clavicular adenopathy, Respiratory - Lungs are clear with good air movement bilaterally, Cardiovascular - Heart rhythm is regular. There is no murmur, gallop, or rub noted, Breasts - There is mild induration in the left breast. There are no breast masses noted. There is no axillary adenopathy noted, Abdomen - Soft. Liver and spleen are not enlarged. There is no abdominal mass or ascites noted and there is no inguinal adenopathy, Extremities - No edema, Neurologic - No focal neurologic deficits noted. Lab/Imaging: Test performed on Feb 25, 2021 08:18 Cholesterol, Total 251 mg/dL Sodium 142 mmol/L Vitamin D (25-Hydroxy), Total 57 ng/mL Potassium 3.8 mmol/L Triglycerides 82 mg/dL Chloride 105 mmol/L LDL Cholesterol 158 mg/dL CO2 29 mmol/L Anion Gap 11.8 HDL Cholesterol 77 mg/dL BUN 11 mg/dL Cholesterol/HDL Ratio 3.26 mg/dL Creatinine 0.6 mg/dL LDL / HDL Ratio 2.05 RATIO Cr Clearance (Est) 105.81 mL/min eGFR 102.0 mL/min Glucose 88 mg/dL Osmolality - Calculated 293 mOsm/kg Calcium 9.3 mg/dL Protein, Total 6.9 g/dL Albumin 4.3 g/dL Globulin 2.6 g/dL Bilirubin, Total 0.6 mg/dL ALT (SGPT) 21 U/L AST (SGOT) 30 U/L Alkaline Phosphatase 65 IU/L WBC 4.3 10 3/uL RBC 4.58 10 6/uL HGB 15.1 g/dL HCT 44.4 % MCV 96.9 fl MCH 33.0 pg MCHC 34.0 g/dL RDW 12.3 % Platelet Count 139 10 3/cmm MPV 12.3 fL Neutrophils 2.05 10 3/uL Lymphocytes 1.6 10 3/uL Monocytes 0.4 10 3/uL Eosinophils 0.2 10 3/uL Basophils 0.0 10 3/uL Neutrophil % 47.9 % Lymphocyte % 37.4 % Monocyte % 9.1 % Eosinophil % 4.7 % Basophils % 0.9 % NRBC % 0 % Problem List: 1. Multifocal grade 2 infiltrating ductal carcinoma of the left breast, stage IA (T1c, N0, M0), ER/OH positive and HER-2/sean negative. Her Oncoptype DX score was 15, low risk. 2. Her baseline bone density did show evidence of osteopenia with T score -1.8 in the lumbar spine, -1.6 in the left proximal femur, and -1.5 in the right proximal femur. She began treatment with Prolia in February 2019. Problems Addressed with this Encounter and Plan: 1. Patient with multifocal grade 2 infiltrating ductal carcinoma of the left breast, stage IA (T1c, N0, M0), ER/OH positive and HER-2/sean negative. She underwent needle biopsy of 2 left breast lesions on 08/02/2018 followed by lumpectomy and axillary sentinel lymph node biopsy on 08/30/2018. Her Oncoptype DX score was 15, low risk, with risk of distant disease at 9 years estimated at 4% with adjuvant endocrine therapy. The predicted benefit with adjuvant chemotherapy was < 1%. As such, chemotherapy was not recommended. She underwent radiation to the left breast, completed on 11/05/2018 to a total dose of 5256 cGy. In November 2018 she began adjuvant hormonal therapy with anastrozole 1 mg daily. During follow-up she has had some fatigue and she also has had some musculoskeletal pain, mainly in the lower back and hips. At this point it is not getting any worse. Overall,the side effects have remained tolerable. She has otherwise been doing well clinically. There has been no evidence of recurrence of the breast cancer. She will continue adjuvant hormonal therapy with anastrozole 1 mg daily. She will be scheduled for a follow-up visit in 6 months. 2. Her baseline bone density did show evidence of osteopenia with T score -1.8 in the lumbar spine, -1.6 in the left proximal femur, and -1.5 in the right proximal femur. She began treatment with Prolia in February 2019. She has tolerated it with no apparent adverse effects. Her repeat DEXA scan on 11/27/2020 did show improvement. She will continue treatment with Prolia, 60 mg by subcutaneous injection. Signed By: Keshav Stewart M.D. <<Signature on File>>
== END 2021-02-25 07:58 | disposition home or self-care (01) ==
PROVIDERS: PCP Physician Assistant; Visit Provider Internal Medicine Medical Oncology
DX: C50.812 Malignant neoplasm of overlapping sites of left female breast (principal); Z17.0 Estrogen receptor positive status [ER+]; M85.80 Other specified disorders of bone density and structure, unspecified site; M81.0 Age-related osteoporosis without current pathological fracture; Z79.811 Long term (current) use of aromatase inhibitors; Z79.899 Other long term (current) drug therapy; Z90.12 Acquired absence of left breast and nipple; Z92.21 Personal history of antineoplastic chemotherapy; Z92.3 Personal history of irradiation
CPT/HCPCS: 36415; 80053; 80061; 82306; 85025; 96372; 99215; J0897

== ENCOUNTER 2021-08-13 11:04 | Outpatient (CLI) | payer OTHER, SELFPAY ==
--- NOTE | 2021-08-13 11:09 | MM_ITS ---
WS: [id number] DIAGNOSTIC BILATERAL 3D TOMOSYNTHESIS DIGITAL MAMMOGRAM WITH CAD HISTORY: HX OF BREAST CA COMPARISON: None available. TECHNIQUE: Bilateral craniocaudad, mediolateral oblique, and mediolateral views are submitted. Comput er aided detection utilized. Breast composition: There are scattered areas of fibroglandular density. Volume loss in the LEFT candice st with mild thickening of the trabecular pattern. Similar to prior studies. No recurrent mass. Dystr ophic calcification upper-outer quadrant LEFT breast. The RIGHT breast is negative. MM/[place] [id number] IMPRESSION: BI-RADS: 2-Benign FOLLOW UP: 1 Year Follow-up
== END 2021-08-13 11:05 | disposition home or self-care (01) ==
LOC: RADSHAW 11:04
PROVIDERS: PCP Physician Assistant; Visit Provider Internal Medicine Medical Oncology
DX: Z85.3 Personal history of malignant neoplasm of breast (principal)
CPT/HCPCS: 77062

== ENCOUNTER 2021-09-06 08:14 | Oncology outpatient (recurring) (ONCR) | payer OTHER, SELFPAY ==
[2021-09-06 09:06] LABS: Basophils % 0.9 %; Eosinophils # 0.2 10^3/uL (0.0-0.8); Hematocrit 42.1 % (37.0-47.0); Hemoglobin 14.1 g/dL (11.5-15.3); Lymphocytes # 1.4 10^3/uL (0.8-4.8); Lymphocytes % 31.5 %; Mean Corpuscular HGB Conc 33.5 g/dL (30.0-36.0); Mean Corpuscular Hemoglobin 32.8 pg (28.0-34.0); Mean Corpuscular Volume 97.9 fl (81-99); Mean Platelet Volume 11.5 fL (7.4-10.4); Monocytes # 0.4 10^3/uL (0.2-0.9); Monocytes % 9.7 %; Neutrophils # 2.39 10^3/uL (1.8-7.7); Neutrophils % 53.7 %; Nucleated Red Blood Cells % 0 %; Platelet Count 155 10^3/cmm (130-400); Red Cell Distribution Width 12.4 % (12.1-15.1); White Blood Count 4.5 10^3/uL (4.0-10.0)
[2021-09-06 09:28] LABS: Alanine Aminotransferase 21 U/L (0-33); Albumin Level 4.1 g/dL (3.5-5.2); Alkaline Phosphatase 69 IU/L (35-105); Aspartate Amino Transferase 34 U/L (0-32); Blood Urea Nitrogen 17 mg/dL (8-23); Calcium 9.5 mg/dL (8.5-10.5); Carbon Dioxide 25 mmol/L (22-29); Chloride 106 mmol/L (98-107); Glomerular Filtration Rate 101.6 mL/min (90-130); Glucose 90 mg/dL (65-115); Osmolality Calculated 291 mOsm/kg (285-295); Sodium 140 mmol/L (136-145); Total Bilirubin 0.5 mg/dL (0.15-1.2); Total Protein 7.1 g/dL (6.6-8.7)
[2021-09-06 09:31] LABS: Anion Gap 13.2 (5-19); Potassium 4.2 mmol/L (3.5-5.1)
== END 2021-10-05 23:59 | disposition home or self-care (01) ==
PROVIDERS: PCP Physician Assistant; Referring Provider Surgery; Visit Provider Internal Medicine Medical Oncology
DX: C50.812 Malignant neoplasm of overlapping sites of left female breast (principal); Z17.0 Estrogen receptor positive status [ER+]; M85.80 Other specified disorders of bone density and structure, unspecified site; Z79.818 Long term (current) use of other agents affecting estrogen receptors and estrogen levels; Z79.899 Other long term (current) drug therapy; Z92.3 Personal history of irradiation
CPT/HCPCS: 36415; 80053; 85025; 99214

== ENCOUNTER 2022-08-15 08:46 | Outpatient (CLI) | payer OTHER, SELFPAY ==
--- NOTE | 2022-08-15 09:06 | MM_ITS ---
WS: [id number] DIAGNOSTIC BILATERAL DIGITAL BREAST TOMOSYNTHESIS MAMMOGRAPHY WITH CAD HISTORY: Yearly surveillance for breast cancer, history of breast cancer. COMPARISON: 08/13/2021, 08/11/2020 TECHNIQUE: Bilateral craniocaudad, mediolateral oblique, and mediolateral views are submitted with to mosynthesis and SM. Computer aided detection utilized. Breast composition: There are scattered areas of fibroglandular density. Volume loss and distortion o f the LEFT breast from prior surgery. There are a few benign scattered calcifications in each breast. No suspicious masses. No suspicious calcifications. MM/[place] [id number] IMPRESSION: BI-RADS: 2-Benign FOLLOW UP: 1 Year Follow-up
== END 2022-08-15 08:47 | disposition home or self-care (01) ==
LOC: RAD 08:47
PROVIDERS: PCP Physician Assistant; Visit Provider Internal Medicine Medical Oncology
DX: C50.812 Malignant neoplasm of overlapping sites of left female breast (principal)
CPT/HCPCS: 77062; G0279

== ENCOUNTER 2022-09-12 07:45 | Oncology outpatient (recurring) (ONCR) | payer OTHER, SELFPAY ==
[2022-09-12 08:07] LABS: Basophils % 0.6 %; Eosinophils # 0.2 10^3/uL (0.0-0.8); Eosinophils % 4.1 %; Hematocrit 40.8 % (37.0-47.0); Hemoglobin 13.9 g/dL (11.5-15.3); Lymphocytes # 1.7 10^3/uL (0.8-4.8); Lymphocytes % 36.1 %; Mean Corpuscular HGB Conc 34.1 g/dL (30.0-36.0); Mean Corpuscular Hemoglobin 32.3 pg (28.0-34.0); Mean Corpuscular Volume 94.9 fl (81-99); Mean Platelet Volume 10.8 fL (7.4-10.4); Monocytes # 0.4 10^3/uL (0.2-0.9); Neutrophils # 2.33 10^3/uL (1.8-7.7); Nucleated Red Blood Cells % 0 %; Platelet Count 152 10^3/cmm (130-400); Red Cell Distribution Width 12.2 % (12.1-15.1); White Blood Count 4.7 10^3/uL (4.0-10.0)
[2022-09-12 08:47] LABS: 25 Hydroxy Vitamin D 63 ng/mL (30-100); Alanine Aminotransferase 19 U/L (0-33); Albumin Level 3.9 g/dL (3.5-5.2); Alkaline Phosphatase 99 U/L (35-105); Anion Gap 13.9 (5-19); Aspartate Amino Transferase 31 U/L (0-32); Blood Urea Nitrogen 14 mg/dL (8-23); Calcium 8.9 mg/dL (8.5-10.5); Carbon Dioxide 26 mmol/L (22-29); Chloride 107 mmol/L (98-107); Globulin 2.4 g/dL (1.3-4.6); Glomerular Filtration Rate 84.8 mL/min (90-130); Glucose 92 mg/dL (65-115); Osmolality Calculated 296 mOsm/kg (285-295); Potassium 3.9 mmol/L (3.5-5.1); Sodium 143 mmol/L (136-145); Total Bilirubin 0.5 mg/dL (0.15-1.2); Total Protein 6.3 g/dL (6.6-8.7)
== END 2022-10-05 23:59 | disposition home or self-care (01) ==
PROVIDERS: PCP Physician Assistant; Visit Provider Internal Medicine Medical Oncology
DX: C50.812 Malignant neoplasm of overlapping sites of left female breast (principal); Z17.0 Estrogen receptor positive status [ER+]; M85.89 Other specified disorders of bone density and structure, multiple sites
CPT/HCPCS: 80053; 82306; 85025

== ENCOUNTER → 2022-10-31 15:09 | Outpatient (BNVA) | payer OTHER, SELFPAY | PROVIDERS: PCP Physician Assistant; Visit Provider Podiatrist Foot & Ankle Surgery | DX: S93.601A Unspecified sprain of right foot, initial encounter (principal); X50.1XXA Overexertion from prolonged static or awkward postures, initial encounter | CPT/HCPCS: 73630; 99213 ==

== ENCOUNTER 2022-12-02 13:05 | Outpatient (CLI) | payer OTHER, SELFPAY ==
--- NOTE | 2022-12-02 13:30 | XR_ITS ---
WS: [id number] DEXA (DUAL ENERGY X-RAY ABSORPTIOMETRY) Bone mineral density was performed using a [employer] machine. HISTORY: 2 year follow up - due in November COMPARISON: 11/27/2020 Lumbar spine BMD (L1-L4): 0.980 g/cm2 T score: -1.7 Z score: -0.5 Total hip BMD: Left: 0.808 g/cm2. T score: -1.6 Z score: -0.7 Right: 0.791 g/cm2. T score: -1.7 Z score: -0.8 10 year probability of a major osteoporotic fracture is 10.5%. Compared to the prior study from 11/27/2020. Lumbar spine bone mineral density has decreased by 6.4%. Bilateral hips bone mineral density has decreased by 7.4%. XR/XR DEXA axial skeleton* [id number] IMPRESSION: OSTEOPENIA based upon the WHO classification for females. Significant decrease in bone mineral density within the lumbar spine and hips s steffi the prior study.
== END 2022-12-02 13:06 | disposition home or self-care (01) ==
PROVIDERS: PCP Physician Assistant; Visit Provider Internal Medicine Medical Oncology
DX: M85.80 Other specified disorders of bone density and structure, unspecified site (principal)
CPT/HCPCS: 77080

== ENCOUNTER 2023-08-23 15:02 | Oncology outpatient (recurring) (ONCR) | payer OTHER, SELFPAY ==
--- NOTE | 2023-08-23 15:30 | MM_ITS ---
WS: [email or web address] BILATERAL 3D TOMOSYNTHESIS DIGITAL DIAGNOSTIC MAMMOGRAPHY WITH CAD CLINICAL INFORMATION: 1 year follow up HISTORY: History of breast cancer. Radiation and chemo LEFT breast lumpectomy COMPARISON: 08/15/2022 TECHNIQUE: Bilateral CC, MLO, and ML views. FINDINGS: Scattered fibroglandular densities bilaterally. Prior lumpectomy LEFT breast with parenchymal scarrin g. Volume loss LEFT breast. A few incidental benign calcifications bilaterally. No suspicious focal mass, asymmetry, calcifications, or architectural distortion. No evidence of hari gnancy. IMPRESSION: MM/[place] [id number] BI-RADS: 2-Benign FOLLOW UP: 1 Year Follow-up Recommend return to annual diagnostic mammography.
== END 2023-09-05 23:59 | disposition home or self-care (01) ==
LOC: RAD 15:04 → ONCMED 08-31 16:32
PROVIDERS: Visit Provider Internal Medicine Medical Oncology
DX: C50.812 Malignant neoplasm of overlapping sites of left female breast (principal); Z17.0 Estrogen receptor positive status [ER+]
CPT/HCPCS: 77062; G0279

== ENCOUNTER 2023-09-12 08:09 | Oncology outpatient (recurring) (ONCR) | payer OTHER, SELFPAY ==
[2023-09-12 08:39] LABS: Basophils % 0.6 %; Eosinophils # 0.2 10^3/uL (0.0-0.8); Eosinophils % 3.1 %; Hematocrit 42.5 % (36-47); Lymphocytes # 1.7 10^3/uL (0.8-4.8); Lymphocytes % 32.5 %; Mean Corpuscular HGB Conc 34.8 g/dL (30-55); Mean Corpuscular Hemoglobin 32.6 pg (27-33); Mean Corpuscular Volume 93.6 fl (85-98); Mean Platelet Volume 10.6 fL (7.4-10.4); Monocytes # 0.5 10^3/uL (0.2-0.9); Monocytes % 9.8 %; Neutrophils % 53.8 %; Nucleated Red Blood Cells % 0 %; Platelet Count 189 10^3/cmm (157-399); Red Blood Count 4.54 10^6/uL (3.85-5.65); Red Cell Distribution Width 12.1 % (12.1-15.1)
[2023-09-12 09:51] LABS: Alanine Aminotransferase 22 U/L (0-33); Albumin Level 4.1 g/dL (3.5-5.2); Alkaline Phosphatase 81 U/L (35-105); Anion Gap 15.8 (5-19); Aspartate Amino Transferase 33 U/L (0-32); Blood Urea Nitrogen 12 mg/dL (8-23); Calcium 9.1 mg/dL (8.5-10.5); Carbon Dioxide 25 mmol/L (22-29); Chloride 104 mmol/L (98-107); Globulin 2.8 g/dL (1.3-4.6); Glomerular Filtration Rate 72.4 mL/min (90-130); Glucose 94 mg/dL (65-115); Osmolality Calculated 292 mOsm/kg (285-295); Potassium 3.8 mmol/L (3.5-5.1); Sodium 141 mmol/L (136-145); Total Bilirubin 0.6 mg/dL (0.15-1.2); Total Protein 6.9 g/dL (6.6-8.7)
== END 2023-10-06 23:59 | disposition home or self-care (01) ==
PROVIDERS: Visit Provider Internal Medicine Medical Oncology
DX: C50.812 Malignant neoplasm of overlapping sites of left female breast (principal); Z17.0 Estrogen receptor positive status [ER+]; Z53.9 Procedure and treatment not carried out, unspecified reason
CPT/HCPCS: 36415; 80053; 85025

== ENCOUNTER 2023-10-04 06:48 | Outpatient (CLI) | payer OTHER, SELFPAY ==
--- NOTE | 2023-10-04 07:15 | US_ITS ---
WS: [email or web address] RIGHT UPPER QUADRANT ULTRASOUND HISTORY: RUQ abdominal pain COMPARISON: None available. Liver: 15.2 cm in length. Small cyst in the periphery the liver measures 1.1 x 1.3 cm. No solid mass. No bile duct dilatation. Portal Vein: Normal hepatopetal flow with monophasic waveform. Gallbladder: Normally distended gallbladder with no stones or wall thickening. CBD: 0.3 cm Pancreas: Not well visualized. Right kidney: 11.1 cm in length. Normal size and echogenicity. No hydronephrosis or mass. Aorta and IVC: Unremarkable abdominal aorta and IVC. No ascites. US/US abdomen limited [id number] IMPRESSION: 1. Small hepatic cyst measures 1.1 x 1.3 cm. Otherwise negative liver. 2. Normal gallbladder.
== END 2023-10-04 06:49 | disposition home or self-care (01) ==
LOC: RAD 06:48
PROVIDERS: Visit Provider Nurse Practitioner Family
DX: R10.11 Right upper quadrant pain (principal); K76.89 Other specified diseases of liver; C50.812 Malignant neoplasm of overlapping sites of left female breast
CPT/HCPCS: 76705

== ENCOUNTER → 2024-02-25 17:58 | Outpatient (BNVA) | payer OTHER, SELFPAY | PROVIDERS: Visit Provider Nurse Practitioner | DX: R50.9 Fever, unspecified (principal) | CPT/HCPCS: 87426 ==

== ENCOUNTER 2024-08-28 14:00 | Outpatient (CLI) | payer OTHER, SELFPAY ==
--- NOTE | 2024-08-28 14:30 | MM_ITS ---
WS: [email or web address] BILATERAL 3D TOMOSYNTHESIS DIGITAL DIAGNOSTIC MAMMOGRAPHY WITH CAD CLINICAL INFORMATION: breast cancer; compare to previous HISTORY: Breast cancer COMPARISON: 08/23/2023 TECHNIQUE: Bilateral CC, MLO, and ML views. FINDINGS: Scattered fibroglandular densities bilaterally. Prior postoperative changes LEFT lumpectomy with parenchymal fibrosis. Associated dystrophic calcifications. Treatment-related changes LEFT breast. No suspicious focal mass, asymmetry, calcifications, or architectural distortion. No evidence of malignancy. MM/MM diag tomosynthesis [id number] IMPRESSION: DENSITY: There are scattered areas of fibroglandular density. BI-RADS: 2 - Benign. FOLLOW UP: 1 Year Follow-up Recommend return to annual diagnostic mammography.
== END 2024-08-28 14:01 | disposition home or self-care (01) ==
PROVIDERS: PCP Family Medicine; Visit Provider Nurse Practitioner
DX: C50.812 Malignant neoplasm of overlapping sites of left female breast (principal); R92.323 Mammographic fibroglandular density, bilateral breasts; Z98.890 Other specified postprocedural states; R92.1 Mammographic calcification found on diagnostic imaging of breast; N64.89 Other specified disorders of breast; N60.32 Fibrosclerosis of left breast
CPT/HCPCS: 77062; G0279

== ENCOUNTER 2024-09-12 07:33 | Oncology outpatient (recurring) (ONCR) | payer OTHER, SELFPAY ==
[2024-09-11 09:58] LABS: Basophils % 0.7 %; Eosinophils # 0.2 10^3/uL (0.0-0.8); Hematocrit 41.9 % (36-47); Lymphocytes # 1.7 10^3/uL (0.8-4.8); Lymphocytes % 29.4 %; Mean Corpuscular HGB Conc 35.1 g/dL (30-55); Mean Corpuscular Hemoglobin 33.4 pg (27-33); Mean Corpuscular Volume 95.2 fl (85-98); Mean Platelet Volume 11.3 fL (7.4-10.4); Monocytes # 0.6 10^3/uL (0.2-0.9); Monocytes % 9.6 %; Neutrophils # 3.26 10^3/uL (1.8-7.7); Nucleated Red Blood Cells % 0 %; Platelet Count 149 10^3/cmm (157-399); Red Cell Distribution Width 12.6 % (12.1-15.1); White Blood Count 5.72 10^3/uL (3.29-11.43)
[2024-09-11 10:16] LABS: Alanine Aminotransferase 30 U/L (0-33); Alkaline Phosphatase 111 U/L (35-105); Anion Gap 11.8 (5-19); Aspartate Amino Transferase 39 U/L (0-32); Blood Urea Nitrogen 15 mg/dL (8-23); Calcium 9.2 mg/dL (8.5-10.5); Carbon Dioxide 30 mmol/L (22-29); Chloride 105 mmol/L (98-107); Chol HDL Ratio 2.96 mg/dL (0.0-4.40); Cholesterol 198 mg/dL (0-200); Globulin 2.7 g/dL (1.3-4.6); Glomerular Filtration Rate 72.2 mL/min (90-130); Glucose 108 mg/dL (65-115); HDL Cholesterol 67 mg/dL (60-100); LDL Cholesterol Calculated 109 mg/dL (50-129); LDL HDL Ratio 1.63 RATIO (0.00-3.22); Osmolality Calculated 297 mOsm/kg (285-295); Potassium 3.8 mmol/L (3.5-5.1); Sodium 143 mmol/L (136-145); Total Bilirubin 0.4 mg/dL (0.15-1.2); Total Protein 6.7 g/dL (6.6-8.7); Triglycerides 108 mg/dL (0-150)
== END 2024-10-05 23:59 | disposition home or self-care (01) ==
PROVIDERS: Nurse Practitioner Family; PCP Family Medicine; Visit Provider Internal Medicine
DX: C50.812 Malignant neoplasm of overlapping sites of left female breast (principal); Z17.0 Estrogen receptor positive status [ER+]; I10 Essential (primary) hypertension
CPT/HCPCS: 36415; 80053; 80061; 85025

== ENCOUNTER 2024-12-06 12:34 | Outpatient (CLI) | payer OTHER, SELFPAY ==
--- NOTE | 2024-12-06 13:00 | XR_ITS ---
WS: [id number] DEXA (DUAL ENERGY X-RAY ABSORPTIOMETRY) Bone mineral density was performed using a [employer] machine. HISTORY: prior AI use COMPARISON: 12/02/2022 Lumbar spine BMD (L1-L4): 1.032 g/cm2 T score: -1.2 Z score: -0.1 Total hip BMD: Left: 0.845 g/cm2. T score: -1.3 Z score: -0.4 Right: 0.854 g/cm2. T score: -1.2 Z score: -0.3 10 year probability of a major osteoporotic fracture is 10.1%. Compared to the prior study from 12/02/2022. Lumbar spine bone mineral density has increased by 5.3%. Bilateral hips bone mineral density has increased by 6.4%. XR/XR DEXA axial skeleton* [id number] IMPRESSION: OSTEOPENIA based upon the WHO classification for females. Significant increase in bone mineral density within the lumbar spine and hips s steffi the prior study.
== END 2024-12-06 12:35 | disposition home or self-care (01) ==
LOC: RAD 12:34
PROVIDERS: PCP Family Medicine; Visit Provider Nurse Practitioner Family
DX: Z13.820 Encounter for screening for osteoporosis (principal); C50.812 Malignant neoplasm of overlapping sites of left female breast; Z92.21 Personal history of antineoplastic chemotherapy; M85.89 Other specified disorders of bone density and structure, multiple sites
CPT/HCPCS: 77080